=== PATIENT | male | born 1930 | race Caucasian/White ===

== ENCOUNTER → 2016-09-28 | Outpatient (CLI) | payer MEDICARE, OTHER ==
[~2016-09-28] MED LIST: AMOXICILLIN 50500 MG PO; AVAPRO150 MG PO; BYSTOLIC10 MG PO; CALCIUM600 M1 PO; CEFTIN500 MG PO; CEFUROXIME AXE500 MG PO; COUMADIN2.5 MG PO; DILTIAZEM180 MG PO; DOXAZOSIN MESYLA4 MG PO; FISH OIL O1600 MG/5 PO; FLONASE 50 MCG16 GM; KLOR-CON M2020 ME1 PO; LOPRESSOR 50 MG50 MG OR; MAG-OX 400MG T400 MG PO; MAXZIDE 25 MG-31 TAB PO; METOCLOPRAMIDE10 MG PO; METOPROLOL SUC100 M1 PO; METOPROLOL SUCC50 M1 PO; MICRO-K10 MEQ PO; NITROGLYCERIN0.4 M1 SL; PRILOSEC20 MG PO; PROAIR HFA0.09 MG/AC IH; SIMVASTATIN10 MG PO; VICODIN 5/500 T1 TAB PO; WARFARIN SODIU2.5 MG PO
== END ==
LOC: LAB 08:05
DX: I48.2 Chronic atrial fibrillation (principal); Z79.01 Long term (current) use of anticoagulants; Z51.81 Encounter for therapeutic drug level monitoring

== ENCOUNTER → 2017-02-07 | Outpatient (CLI) | payer MEDICARE, OTHER | LOC: LAB 07:29 | DX: I48.2 Chronic atrial fibrillation (principal); Z79.01 Long term (current) use of anticoagulants; Z51.81 Encounter for therapeutic drug level monitoring ==

== ENCOUNTER → 2017-04-04 | Outpatient (CLI) | payer MEDICARE, OTHER ==
[2017-04-04 10:56] LABS: BUN 25 mg/dL (7-18); GFR (ESTIMATED) 38 ML/MIN (>60)
== END ==
LOC: LAB 08:03
PROVIDERS: Family Medicine
DX: E78.5 Hyperlipidemia, unspecified (principal); I10 Essential (primary) hypertension; I95.89 Other hypotension; R60.1 Generalized edema